=== PATIENT | female | born 1985 | race Two or more races ===

== ENCOUNTER 2024-09-10 15:07 | Emergency (ER) | payer BC ==
[~2024-09-10] VITALS: Ht 160 cm; Wt 95.3 kg
[2024-09-10] MEDS ORDERED: ACETAMINOPHEN 500 MG GEL..CAP PO ONE ×2 (17:15→17:24)
[2024-09-10 18:56] LABS: HEMOGLOBIN 12.2 g/dL (12.0-15.00); MEAN CELL VOLUME 84.6 fL (80.00-100.00); MEAN CORPUSCULAR HEMOGLOBIN 28.7 pg (27.00-32.0); PLATELET COUNT 278 K/uL (150-450); RED BLOOD COUNT 4.26 M/uL (4.00-6.00); RED CELL DISTRIBUTION WIDTH 13.9 % (11.5-14.5)
[2024-09-10 19:39] LABS: CREATININE SERUM 0.71 mg/dL (0.55-1.02); GFR 92.13; POTASSIUM 3.54 mEq/L (3.5-5.1)
[2024-09-10 20:34] LABS: PH,URINE 5.5 (5.0-8.0); URINE APPEARANCE Cloudy; URINE BILIRRUBIN Negative (NEGATIVE); URINE BLOOD Large; URINE COLOR Red; URINE GLUCOSE Negative (NEGATIVE); URINE KETONE Negative (NEGATIVE); URINE LEUKOCYTE Moderate; URINE NITRATE Negative; URINE PROTEIN 30 (NEGATIVE)
[2024-09-10 20:38] LABS: URINE BACTERIA 1030.6 uL (0.0-1933); URINE EPITHELIAL CELLS 25.6 uL (0.0-38.8); URINE WBC 338.3 uL (0.0-23.2)
[2024-09-10 20:59] LABS: URINE RBC > 10558.9 uL (0.0-20.8)
== END 2024-09-10 22:02 | disposition home or self-care (01) ==
LOC: ER 15:08
PROVIDERS: Emergency Medicine
DX: N39.0 Urinary tract infection, site not specified (principal); A56.01 Chlamydial cystitis and urethritis; N93.9 Abnormal uterine and vaginal bleeding, unspecified